=== PATIENT | male | born 1950 | race Caucasian/White ===

== ENCOUNTER → 2024-06-24 16:56 | Outpatient (REF) | payer MEDICARE, SELFPAY | LOC: RAD 16:56 | PROVIDERS: ATTENDING PHYSICIAN Nurse Practitioner Family | DX: M25.562 Pain in left knee (principal) | CPT/HCPCS: 73564 ==

== ENCOUNTER 2024-09-08 06:22 | Day surgery (SDC) | payer MEDICARE, SELFPAY ==
[2024-09-08] VITALS (8 sets, daily range): BP systolic 127–152; BP diastolic 64–88; BMI 26.0
[2024-09-08] MEDS: TYLENOL 1000 MG PO (11:24)
[2024-09-08] MEDS: NORMOSOL-R/PLASMALYTE-A 1000 IV (11:25)
--- NOTE | 2024-09-08 13:21 | W.IMMPOSTOP ---
Surgical Immed Post Op Note
-
Primary Surgeon: Andrés Rebolledo MD
Assisting Surgeon:
Pre-op Diagnosis: left knee medial meniscal tear
Post-op Diagnosis: left knee medial meniscal tear
Procedure Performed: arthroscopic left knee partial medial meniscectomy
Anesthesia Type: general
Specimen / Cultures: none
Estimated Blood Loss: 2mL
Complications: none apparent
Tourniquet time: 28 minutes @ 250mm Hg
Operative Findings: undersurface horizontal tear of posterior horn medial meniscus; grade 1 chondrosis of patella, medial tibial plateau
Operative dictation #: [id number]
[2024-09-08] MEDS: DILAUDID 0.25 MG IV ×2 (13:44→13:57)
== END 2024-09-08 15:00 | disposition home or self-care (01) ==
LOC: SDS 06:22
PROVIDERS: ATTENDING PHYSICIAN Student in an Organized Health Care Education/Training Program; FAMILY PHYSICIAN Family Medicine
DX: S83.242A Other tear of medial meniscus, current injury, left knee, initial encounter (principal); X58.XXXA Exposure to other specified factors, initial encounter
CPT/HCPCS: 29881